=== PATIENT | male | born 1995 | race Caucasian/White ===

== ENCOUNTER 2018-07-05 19:05 | Emergency (ER) | payer BC, OTHER ==
[2018-07-05 19:11] VITALS: BP 140/72
--- NOTE | 2018-07-05 19:39 | EDM.PDOC ---
ED HPI GENERAL MEDICAL PROBLEM - General Chief Complaint: General Stated Complaint: chills, cough Time Seen by Provider: 07/05/18 19:19 - History of Present Illness INITIAL COMMENTS - FREE TEXT/NARRATIVE: Patient presents to ER with mother with complaints of a 5 day history of cough, chills and achiness. He states he coughed so hard at times he noted small amounts of blood. Has had mild sinus congestion, no ear pain or a sore throat. Has been dizzy at times as well. Has been taking tylenol and cold medicines for this without much consistent relief. Onset: Gradual Duration: Day(s): Location: Reports: Chest, Generalized Quality: Reports: Ache Severity: Moderate Improves with: Reports: Rest Associated Symptoms: Reports: Cough, Fever/Chills, Loss of Appetite, Malaise, Shortness of Breath, Weakness. Denies: Nausea/Vomiting Treatments DITCH INSPECTOR: Reports: Acetaminophen, Home Treatments (cold medicine) Chest Pain Score (Numeric/FACES): 8 - Related Data Allergies Allergy/AdvReac Type Severity Reaction Status Date / Time cetirizine HCl [From [facility]] Allergy Hives Verified 07/05/18 19:06 Home Meds: Home Meds . [No Known Home Meds] 08/10/13 [History] Past Medical History Musculoskeletal History: Reports: Other (See Below) Other Musculoskeletal History: sugery on abdominal muscle at 3 months old - Past Surgical History HEENT Surgical History: Reports: Oral Surgery, Tonsillectomy GI Surgical History: Reports: Hernia, Abdominal Social & Family History - Tobacco Use Smoking Status *Q: Current Every Day Smoker Years of Tobacco use: 11 Packs/Tins Daily: 1 - Caffeine Use Caffeine Use: Reports: Energy Drinks ED ROS GENERAL - Review of Systems Review Of Systems: See Below Constitutional: Reports: Fever, Chills, Malaise, Weakness, Fatigue, Decreased Appetite HEENT: Reports: Rhinitis, Vertigo. Denies: Ear Pain, Sinus Problem, Throat Pain Respiratory: Reports: Shortness of Breath, Cough, Sputum Cardiovascular: Denies: Chest Pain, Edema, Lightheadedness Endocrine: Reports: Fatigue GI/Abdominal: Denies: Abdominal Pain, Nausea, Vomiting : Reports: No Symptoms Musculoskeletal: Reports: No Symptoms Skin: Reports: No Symptoms Neurological: Reports: No Symptoms ED EXAM, GENERAL - Physical Exam Exam: See Below Exam Limited By: No Limitations General Appearance: Alert, WD/WN, No Apparent Distress Ears: Normal External Exam, Normal TMs Nose: Normal Inspection, Other (nares are patent, thick rhinorrhea bilaterally) Throat/Mouth: Normal Inspection, Normal Oropharynx Head: Normocephalic Neck: Normal Inspection, Supple, Non-Tender Respiratory/Chest: No Respiratory Distress, Lungs Clear, Normal Breath Sounds Cardiovascular: Regular Rate, Rhythm GI/Abdominal: Normal Bowel Sounds, Soft, Non-Tender Extremities: Normal Inspection, Normal Capillary Refill Neurological: Alert, Oriented Skin Exam: Warm, Dry Course - Vital Signs Last Recorded V/S: Last Vital Signs Temp 99.5 F 07/05/18 19:06 Pulse 85 07/05/18 19:06 Resp 20 07/05/18 19:06 BP 140/72 07/05/18 19:06 Pulse Ox 97 07/05/18 19:06 - Orders/Labs/Meds Orders: Active Orders 24 hr Category Date Time Status INFLUENZA A+B AG SCREEN [RM] Stat Lab 07/05/18 19:21 Ordered - Re-Assessments/Exams Free Text/Narrative Re-Assessment/Exam: 07/05/18 19:39 Influenza A positive Departure - Departure Time of Disposition: 19:42 Disposition: Home, Self-Care 01 Condition: Fair Clinical Impression: Influenza - Discharge Information *PRESCRIPTION DRUG MONITORING PROGRAM REVIEWED*: No *COPY OF PRESCRIPTION DRUG MONITORING REPORT IN PATIENT TWIN: No Additional Instructions: 1. Push fluids 2. Tylenol or ibuprofen for fever or discomfort 3. Tamiflu 75 mg twice a day for 5 days 4. Rest 5. Call with any questions or concerns. - My Orders Last 24 Hours: My Active Orders 07/05/18 19:21 INFLUENZA A+B AG SCREEN [RM] Stat - Assessment/Plan Last 24 Hours: My Active Orders 07/05/18 19:21 INFLUENZA A+B AG SCREEN [RM] Stat
[2018-07-05] MEDS: Oseltamivir 75 MG Cap PO ONE (19:47)
== END 2018-07-05 19:55 | disposition home or self-care (01) ==
LOC: CC.ED 19:05
DX: J11.1 Influenza due to unidentified influenza virus with other respiratory manifestations (principal); F17.210 Nicotine dependence, cigarettes, uncomplicated; Z88.8 Allergy status to other drugs, medicaments and biological substances
CPT/HCPCS: 87804; 99283; A9270-GY

== ENCOUNTER 2020-07-28 19:25 | Emergency (ER) | payer SELFPAY ==
[2020-07-28 19:28] VITALS: BP 144/93; PULSE 100
[2020-07-28] MEDS ORDERED: Ibuprofen 200 MG Tab PO ONE (20:09)
[2020-07-28 20:13] LABS: CHLORIDE,CL 100 mEq/L (98-106); SODIUM,NA 141 mEq/L (136-145)
[2020-07-28 20:24] LABS: PTT,PARTIAL THROMBOPLSTIN TIME 23.2 SEC (23.2-32.3)
--- NOTE | 2020-07-28 20:52 | EDM.PDOC ---
ED HPI GENERAL MEDICAL PROBLEM - General Chief Complaint: General Stated Complaint: chills, body aches Time Seen by Provider: 07/28/20 20:20 Source of Information: Reports: Patient History Limitations: Reports: No Limitations - History of Present Illness INITIAL COMMENTS - FREE TEXT/NARRATIVE: Moises is a 25 yo male who presents to the ED with c/o body aches, fever/chills, diarrhea, nausea and vomiting. Does also admit he has been coughing some and his chest hurts. He denies any abdominal pain. He reports he left work early today and needs to be tested for Covid, so he came in. He reports if he didn't need tested he "wouldn't have came in." He reports 2 days ago his temp got up to 102. Has not had fever since. Reports he has not ate or drank anything today has he has been sleeping all day. Duration: Improving Location: Reports: Generalized Quality: Reports: Ache Associated Symptoms: Reports: Chest Pain, Cough, Fever/Chills, Loss of Appetite, Malaise, Nausea/Vomiting. Denies: Confusion, cough w sputum, Diaphoresis, Headaches, Rash, Seizure, Shortness of Breath, Syncope, Weakness Generalized Pain Score (Numeric/FACES): 8 - Related Data Allergies Allergy/AdvReac Type Severity Reaction Status Date / Time cetirizine HCl [From [facility]] Allergy Hives Verified 07/28/20 19:40 Home Meds: Home Meds . [No Known Home Meds] 08/10/13 [History] Past Medical History Musculoskeletal History: Reports: Other (See Below) Other Musculoskeletal History: sugery on abdominal muscle at 3 months old - Past Surgical History HEENT Surgical History: Reports: Oral Surgery, Tonsillectomy GI Surgical History: Reports: Hernia, Abdominal Social & Family History - Tobacco Use Tobacco Use Status *Q: Former Tobacco User Used Tobacco, but Quit: No - Caffeine Use Caffeine Use: Reports: Soda - Recreational Drug Use Recreational Drug Use: No ED ROS GENERAL - Review of Systems Review Of Systems: Comprehensive ROS is negative, except as noted in HPI. ED EXAM, GENERAL - Physical Exam Exam: See Below Exam Limited By: No Limitations General Appearance: Alert, WD/WN, No Apparent Distress Eye Exam: Bilateral Eye: EOMI, Normal Fundi, Normal Inspection, PERRL Ears: Normal External Exam, Normal Canal, Hearing Grossly Normal, Normal TMs Nose: Normal Inspection, Normal Mucosa, No Blood Throat/Mouth: Normal Inspection, Normal Lips, Normal Teeth, Normal Gums, Normal Oropharynx, Normal Voice, No Airway Compromise Head: Atraumatic, Normocephalic Neck: Normal Inspection, Supple, Non-Tender, Full Range of Motion Respiratory/Chest: No Respiratory Distress, Lungs Clear, Normal Breath Sounds, No Accessory Muscle Use, Chest Non-Tender Cardiovascular: Normal Peripheral Pulses, Regular Rate, Rhythm, No Edema, No Gallop, No JVD, No Murmur, No Rub GI/Abdominal: Normal Bowel Sounds, Soft, Non-Tender, No Distention, No Abnormal Bruit, No Mass Back Exam: Normal Inspection, Full Range of Motion. No: CVA Tenderness (L), CVA Tenderness (R) Extremities: Normal Inspection, Normal Range of Motion, Non-Tender, Normal Capillary Refill, No Pedal Edema Neurological: Alert, Oriented, CN II-XII Intact, Normal Cognition, Normal Gait, Normal Reflexes, No Motor/Sensory Deficits Psychiatric: Normal Affect, Normal Mood Skin Exam: Warm, Dry, Intact, Normal Color, No Rash Lymphatic: No Adenopathy Course - Vital Signs Last Recorded V/S: Last Vital Signs Temp 97.3 F 07/28/20 19:26 Pulse 100 07/28/20 19:26 Resp 18 07/28/20 19:26 BP 144/93 H 07/28/20 19:26 Pulse Ox 96 07/28/20 19:26 - Orders/Labs/Meds Orders: Active Orders 24 hr Category Date Time Status Chest 2V [CR] Stat Exams 07/28/20 19:29 Taken Labs: Laboratory Tests 07/28/20 07/28/20 07/28/20 Range/Units 19:45 19:45 19:45 WBC 8.7 (5.0-10.0) 10^3/uL RBC 5.82 (4.50-6.00) 10^6/uL Hgb 18.2 H* (14.0-18.0) g/dL Hct 51.0 (40.0-54.0) % MCV 87.6 (82.0-94.0) fL MCH 31.3 (27.0-32.0) pg MCHC 35.7 (33.0-38.0) g/dL RDW Coeff of Michell 13.3 (11.0-15.0) % Plt Count 466 H (150-400) 10^3/uL Neut % (Auto) 66.7 (35-85) % Lymph % (Auto) 20.1 (10-55) % Wake % (Auto) 8.7 (0-16) % Eos % (Auto) 4.2 (0-5) % Baso % (Auto) 0.3 (0-3) % Neut # (Auto) 5.81 (1.80-7.00) 10^3/uL Lymph # (Auto) 1.75 (1.00-4.80) 10^3/uL Wake # (Auto) 0.76 (0.00-0.80) 10^3/uL Eos # (Auto) 0.37 (0.00-0.45) 10^3/uL Baso # (Auto) 0.03 10^3/uL PT 11.6 (9.7-12.3) SEC INR 1.06 (0.92-1.18) APTT 23.2 (23.2-32.3) SEC D-Dimer, Quantitative 0.19 (0.00-0.50) Sodium 141 (136-145) mEq/L Potassium 4.0 (3.5-5.0) mEq/L Chloride 100 (98-106) mEq/L Carbon Dioxide 29 (21-32) mmol/L BUN 12 (7-18) mg/dL Creatinine 1.3 (0.7-1.3) mg/dL Est Cr Clr Drug Dosing 93.68 mL/min Estimated GFR (MDRD) > 60 (>=60) mL/min Glucose 121 H (75-99) mg/dL Lactic Acid (0.4-2.0) mmol/L Calcium 9.4 (8.4-10.1) mg/dL Total Bilirubin 0.6 (0.0-1.0) mg/dL AST 20 (15-37) U/L ALT 35 (12-78) U/L Alkaline Phosphatase 65 (46-116) U/L Creatine Kinase 199 (35-232) U/L Troponin I < 0.017 (0.00-0.06) ng/mL NT-Pro-B Natriuret Pep 48 (0-1000) pg/mL Total Protein 8.1 (6.4-8.2) g/dL Albumin 4.6 (3.4-5.0) g/dL SARS CoV-2 RNA Rapid TAMIKO (NEGATIVE) 07/28/20 07/28/20 Range/Units 19:45 19:45 WBC (5.0-10.0) 10^3/uL RBC (4.50-6.00) 10^6/uL Hgb (14.0-18.0) g/dL Hct (40.0-54.0) % MCV (82.0-94.0) fL MCH (27.0-32.0) pg MCHC (33.0-38.0) g/dL RDW Coeff of Michell (11.0-15.0) % Plt Count (150-400) 10^3/uL Neut % (Auto) (35-85) % Lymph % (Auto) (10-55) % Wake % (Auto) (0-16) % Eos % (Auto) (0-5) % Baso % (Auto) (0-3) % Neut # (Auto) (1.80-7.00) 10^3/uL Lymph # (Auto) (1.00-4.80) 10^3/uL Wake # (Auto) (0.00-0.80) 10^3/uL Eos # (Auto) (0.00-0.45) 10^3/uL Baso # (Auto) 10^3/uL PT (9.7-12.3) SEC INR (0.92-1.18) APTT (23.2-32.3) SEC D-Dimer, Quantitative (0.00-0.50) Sodium (136-145) mEq/L Potassium (3.5-5.0) mEq/L Chloride (98-106) mEq/L Carbon Dioxide (21-32) mmol/L BUN (7-18) mg/dL Creatinine (0.7-1.3) mg/dL Est Cr Clr Drug Dosing mL/min Estimated GFR (MDRD) (>=60) mL/min Glucose (75-99) mg/dL Lactic Acid 2.1 H (0.4-2.0) mmol/L Calcium (8.4-10.1) mg/dL Total Bilirubin (0.0-1.0) mg/dL AST (15-37) U/L ALT (12-78) U/L Alkaline Phosphatase (46-116) U/L Creatine Kinase (35-232) U/L Troponin I (0.00-0.06) ng/mL NT-Pro-B Natriuret Pep (0-1000) pg/mL Total Protein (6.4-8.2) g/dL Albumin (3.4-5.0) g/dL SARS CoV-2 RNA Rapid TAMIKO Negative (NEGATIVE) Meds: Medications Discontinued Medications Generic Name Dose Route Start Last Admin Trade Name Fabricio PRN Reason Stop Dose Admin Ibuprofen 600 mg 07/28/20 20:09 Ibuprofen 200 Mg Tab PO 07/28/20 20:10 ONETIME ONE Departure - Departure Time of Disposition: 20:47 Disposition: Home, Self-Care 01 Condition: Fair Clinical Impression: Viral gastroenteritis - Discharge Information *PRESCRIPTION DRUG MONITORING PROGRAM REVIEWED*: Not Applicable *COPY OF PRESCRIPTION DRUG MONITORING REPORT IN PATIENT TWIN: Not Applicable Instructions: Viral Gastroenteritis, Adult, [id number], Viral Illness, Adult Forms: ED Department Discharge Additional Instructions: - Covid is negative - Suspect viral illness as we discussed - Routine symptomatic cares - Rest and push fluids - [place] diet until vomiting resolves - Tylenol or ibuprofen as needed. Do not take ibuprofen on an empty stomach. - Follow up if symptoms worsen or do not improve over the next few days - Return to ER for emergent needs Sepsis Event Note (ED) - Evaluation Sepsis Screening Result: Possible Sepsis Risk - Focused Exam Vital Signs: Vital Signs Temp Pulse Resp BP Pulse Ox 07/28/20 19:26 97.3 F 100 18 144/93 H 96 - Problem List & Annotations (1) Viral gastroenteritis SNOMED Code(s): 070746554 Code(s): A08.4 - VIRAL INTESTINAL INFECTION, UNSPECIFIED Status: Acute Current Visit: Yes - Problem List Review Problem List Initiated/Reviewed/Updated: Yes - Assessment/Plan Assessment:: Viral Gastroenteritis Plan: Covid is negative. Labs all stable. Suspect viral nature. Patient verbalizes understanding and reports he just needs his results for work. Is off for 72 hours due to work policy. Recommend no return to work until symptoms improve. Follow up if symptoms worsen or do not improve. Return to ER for emergent needs.
== END 2020-07-28 21:00 | disposition home or self-care (01) ==
LOC: CC.ED 19:25
DX: A08.4 Viral intestinal infection, unspecified (principal); Z88.8 Allergy status to other drugs, medicaments and biological substances; Z87.891 Personal history of nicotine dependence; Z20.822 Contact with and (suspected) exposure to COVID-19
CPT/HCPCS: 36415; 71046; 80053; 82550; 83605; 83880; 84484; 85025; 85379; 85610; 85730; 93005; 99284-25; U0002

== ENCOUNTER 2020-12-18 20:16 | Emergency (ER) | payer BC ==
[2020-12-18 20:18] VITALS: BP 141/74; PULSE 81
[2020-12-18] MEDS ORDERED: Take Home: Cefuroxime 250 MG Tab, 2 Tab Pack PO ONE (20:43)
[2020-12-18] MEDS ORDERED: Diphtheria/Tetanus Toxoids,Adult (Td) 0.5 ML Syringe IM ONE (20:47)
--- NOTE | 2020-12-18 20:49 | EDM.PDOC ---
ED HPI GENERAL MEDICAL PROBLEM - General Chief Complaint: General Stated Complaint: leg infection Time Seen by Provider: 12/18/20 20:31 Source of Information: Reports: Patient, Family (Mom) History Limitations: Reports: No Limitations - History of Present Illness INITIAL COMMENTS - FREE TEXT/NARRATIVE: On Tuesday he noted an area that looked like a bruise on the right anterior diaz. He doesn't remember bumping it. Onset: Gradual Location: Reports: Lower Extremity, Right Quality: Reports: Ache Associated Symptoms: Reports: No Other Symptoms Left Upper Arm Pain Score (Numeric/FACES): 4 - Related Data Allergies Allergy/AdvReac Type Severity Reaction Status Date / Time cetirizine HCl [From [facility]] Allergy Hives Verified 12/18/20 20:18 Home Meds: Home Meds . [No Known Home Meds] 08/10/13 [History] Past Medical History Musculoskeletal History: Reports: Other (See Below) Other Musculoskeletal History: sugery on abdominal muscle at 3 months old - Past Surgical History HEENT Surgical History: Reports: Oral Surgery, Tonsillectomy GI Surgical History: Reports: Hernia, Abdominal Social & Family History - Tobacco Use Tobacco Use Status *Q: Never Tobacco User - Caffeine Use Caffeine Use: Reports: Soda - Recreational Drug Use Recreational Drug Use: No ED ROS GENERAL - Review of Systems Review Of Systems: See Below Constitutional: Denies: Fever, Chills Skin: Reports: Wound (right diaz) ED EXAM, GENERAL - Physical Exam Exam: See Below Exam Limited By: No Limitations General Appearance: Alert, WD/WN, Mild Distress Skin Exam: Warm, Dry, Erythema, Wound/Incision (Has red warm area to the anterior diaz. He has bloody drainage from the area. It is tender around the area. Some swelling noted to the area.) Course - Vital Signs Last Recorded V/S: Last Vital Signs Temp 97.3 F 12/18/20 20:16 Pulse 81 12/18/20 20:16 Resp 18 12/18/20 20:16 BP 141/74 H 12/18/20 20:16 Pulse Ox 100 12/18/20 20:16 - Orders/Labs/Meds Orders: Active Orders 24 hr Category Date Time Status CULTURE WOUND + SMEAR [RM] Stat Lab 12/18/20 20:32 Ordered Departure - Departure Time of Disposition: 20:49 Disposition: Home, Self-Care 01 Condition: Good Clinical Impression: Cellulitis Qualifiers: Site of cellulitis: extremity Site of cellulitis of extremity: lower extremity Laterality: right Qualified Code(s): L03.115 - Cellulitis of right lower limb - Discharge Information *PRESCRIPTION DRUG MONITORING PROGRAM REVIEWED*: Not Applicable *COPY OF PRESCRIPTION DRUG MONITORING REPORT IN PATIENT TWIN: Not Applicable Instructions: Cellulitis, Adult Additional Instructions: apply antibiotic ointment to the wound and then dry dressing. tonight take the 2 that are given from here and then take the other 2 in the morning. tomorrow night Start ceftin 500mg twice a day for 9 days. Pick this up at the drug store tomorrow. Sepsis Event Note (ED) - Focused Exam Vital Signs: Vital Signs Temp Pulse Resp BP Pulse Ox 12/18/20 20:16 97.3 F 81 18 141/74 H 100 - Problem List & Annotations (1) Cellulitis SNOMED Code(s): 327007774 Code(s): L03.90 - CELLULITIS, UNSPECIFIED Status: Acute Priority: High Qualifiers: Site of cellulitis: extremity Site of cellulitis of extremity: lower extremity Laterality: right Qualified Code(s): L03.115 - Cellulitis of right lower limb - Problem List Review Problem List Initiated/Reviewed/Updated: Yes - My Orders Last 24 Hours: My Active Orders 12/18/20 20:32 CULTURE WOUND + SMEAR [RM] Stat - Assessment/Plan Last 24 Hours: My Active Orders 12/18/20 20:32 CULTURE WOUND + SMEAR [RM] Stat
[2020-12-18] MEDS ORDERED: Diphtheria,Pertussis(Acell),Tetanus Vaccine 0.5 ML Syringe IM ONE (20:54)
== END 2020-12-18 21:10 | disposition home or self-care (01) ==
LOC: CC.ED 20:16
DX: L03.115 Cellulitis of right lower limb (principal); Z88.8 Allergy status to other drugs, medicaments and biological substances
CPT/HCPCS: 87070; 87077; 87186; 87205; 90471; 90715; 99283; A9270-GY